=== PATIENT | male | born 1980 | race Caucasian/White ===

== ENCOUNTER 2020-04-25 18:56 | Inpatient (IN) | payer OTHER ==
[~2020-04-25] VITALS: Ht 177.8 cm; Wt 108.0 kg
--- NOTE | 2020-04-25 19:08 | NUR ---
PATIENT TO ROOM VIA WHEELCHAIR.
--- NOTE | 2020-04-25 19:09 | NUR ---
PT. WITH C/O PERIUMBILICAL PAIN THAT STARTED YESTERDAY. ABD. SOFT WITH + BOWEL SOUNDS. PT. STATES HE HAS A PMH OF DIVERTICULITIS.
[2020-04-25 20:05] LABS: HEMOGLOBIN 13.6 g/dl (14.0-18.0); IMMATURE GRANULOCYTES 0.7 % (0.0-5.0); MEAN CELL VOLUME 86.5 fL CALC (80.0-100.0); MEAN CORPUSCULAR HGB 28.7 pG CALC (26.0-32.0); MEAN CORPUSCULAR HGB CONC 33.2 g/dL CAL (32.0-36.0); NEUT# 20.16 thou/uL (1.82-7.42); RED BLOOD COUNT 4.74 mill/uL (4.70-6.10); RED CELL DISTRI WIDTH 13.7 % (11.5-15.5)
[2020-04-25 20:06] LABS: URINE BILIRUBIN - DIPSTICK NEGATIVE (NEGATIVE); URINE BLOOD DIPSTICK NEGATIVE (NEGATIVE); URINE COLOR YELLOW; URINE GLUCOSE - DIPSTICK NEGATIVE (NEGATIVE); URINE KETONE TRACE mg/dL (NEGATIVE); URINE LEUK ESTERASE NEGATIVE (NEGATIVE); URINE NITRITE - DIPSTICK NEGATIVE (Negative); URINE PROTEIN - DIPSTICK TRACE mg/dL (NEG-TRACE); URINE SPECIFIC GRAVITY 1.025
[2020-04-25 20:25] LABS: ALBUMIN 4.6 g/dL (3.2-5.0); ALKALINE PHOSPHATASE 83 u/l (38-126); AMYLASE 66 u/l (30-110); ANION GAP 14 (6-22 (CALC)); BILIRUBIN, TOTAL 1.5 mg/dL (0.0-1.4); BUN 16 mg/dL (9-20); BUN/CREATININE RATIO 15 (12-20 (CALC)); CARBON DIOXIDE 23 mmol/l (22-30); CHLORIDE 104 mmol/l (95-108); CREATININE 1.1 mg/dL (0.7-1.3); GFR > 60 ML/MIN (>=60 (CALC)); GFR FOR AFR.AMER. > 60 ML/MIN (>=60 (CALC)); LIPASE 24 u/l (23-300); POTASSIUM 3.8 mmol/l (3.5-5.1); SGOT/AST 23 u/l (17-59); SODIUM 138 mmol/l (137-146); TOTAL PROTEIN 8.2 g/dL (6.3-8.2)
--- NOTE | 2020-04-25 20:46 | NUR ---
PT. STATES HIS ABD. PAIN IS NOW DECREASED TO A 3 ON A SCALE OF 1-10.
--- NOTE | 2020-04-25 21:46 | NUR ---
PT. STATES HIS ABD. PAIN HAS NOT INCREASED. RESTING QUIETLY ON STRETCHER.
--- NOTE | 2020-04-25 22:00 | NUR ---
MD IN ROOM TO DISCUSS CLINICAL FINDINGS, PT. VERBALIZED UNDERSTANDING.
--- NOTE | 2020-04-25 22:28 | NUR ---
Admission Note Report Given to: ZION AVERY Transported by: Wheelchair X Stretcher Transported with: X Nurse Transporter X Patent IV O2 Automobile Body Repair Supervisor Location: ICU X MS2
--- NOTE | 2020-04-25 22:50 | NUR ---
PT. TAKEN TO [facility] VIA STRETCHER, NO C/O AT THIS TIME.
--- NOTE | 2020-04-25 23:21 | NUR ---
[phone] PT. ARRIVED TO THE FLOOR VIA STRETCHER ACCOMPANIED BY ER NURSE; PT. ORIENTED TO CALL LIGHT, ROOM, AND POC; VERBAIZES UNDERSTANDING. ADMISSION ASSESSMENT COMPLETED. PT. C/O ABDOMINAL PAIN 09/15 AND MEDICATED WITH ORDERED TORADOL; WILL REASSESS. PT. DENIES NAUSEA AT THIS TIME. IV SITE PATENT AND ORDERED IVF STARTED AT THIS TIME. EDCUATED ON DIET. CALL LIGHT IS IN REACH. INSTRUCTED TO CALL FOR ANY NEEDS.
[2020-04-25 23:24] VITALS: BP 116/60
--- NOTE | 2020-04-26 02:26 | NUR ---
PT. RESTING IN BED WITH EYES CLOSED. RESP. EVEN AND UNLABORED.
[2020-04-26 04:00] VITALS: BP 138/55
[2020-04-26 06:11] LABS: HEMATOCRIT 39.2 % (39.0-50.0); HEMOGLOBIN 12.4 g/dl (14.0-18.0); IMMATURE GRANULOCYTES 0.4 % (0.0-5.0); MEAN CELL VOLUME 88.9 fL CALC (80.0-100.0); MEAN CORPUSCULAR HGB 28.1 pG CALC (26.0-32.0); MEAN CORPUSCULAR HGB CONC 31.6 g/dL CAL (32.0-36.0); NEUT# 15.01 thou/uL (1.82-7.42); RED BLOOD COUNT 4.41 mill/uL (4.70-6.10); RED CELL DISTRI WIDTH 13.8 % (11.5-15.5)
--- NOTE | 2020-04-26 06:27 | NUR ---
RESTING IN BED WITH EYES CLOSED; RESP. EVEN AND UNLABORED. CALL LIGHT IS IN REACH.
[2020-04-26 06:32] LABS: ANION GAP 14 (6-22 (CALC)); BUN 17 mg/dL (9-20); BUN/CREATININE RATIO 16 (12-20 (CALC)); CARBON DIOXIDE 22 mmol/l (22-30); CHLORIDE 106 mmol/l (95-108); CREATININE 1.1 mg/dL (0.7-1.3); GFR > 60 ML/MIN (>=60 (CALC)); GFR FOR AFR.AMER. > 60 ML/MIN (>=60 (CALC)); SODIUM 138 mmol/l (137-146)
[2020-04-26 08:00] VITALS: BP 134/55
--- NOTE | 2020-04-26 09:00 | NUR ---
PT SEEN AWAKE, ALERT, ORIENTED X 3, AMBULATORY IN ROOM WITHOUT DIFFICULTY. LUNGS CLEAR, DECREASED SLIGHTLY, RA. ABDOMEN IS SOFT, BM THIS MORNING. PT SEEN BY DR WILDE, WILL KEEP NPO FOR 24-48 HOURS AND LET DIVERTICULI HEAL THEMSELVES WITHOUT SURGERY. PT AWARE ICE CHIPS ONLY. NO COMPLAINT OF PAIN.
--- NOTE | 2020-04-26 13:25 | NUR ---
PT PROVIDED TORADOL FOR RISING PAIN NUMBER OF 6, WILL CALL IF ANOTHER PAIN MED IS NEEDED. PT CONTINUES BEFORE, NO SIGNIFICANT CHANGE IN STATUS.
[2020-04-26 15:05] VITALS: BP 133/61
--- NOTE | 2020-04-26 16:18 | NUR ---
PT REMAINS BEFORE, NO ACUTE DISTRESS OR DISCOMFORT. PT AWARE OF AVAILABLE PAIN MED, WILL MAKE IT KNOWN IF NEEDED.
[2020-04-26 19:50] VITALS: BP 146/73
--- NOTE | 2020-04-26 19:59 | NUR ---
ASSESSMENT COMPLETED. NO DISTRESS NOTED; C/O ABDOMINAL PAIN AND MEDICATED WITH ORDERED PRN TORADOL; WILL REASSESS. PT. NPO. ENCOURAGED TO CALL FOR ANY NEEDS. CALL LIGHT IS IN REACH.
--- NOTE | 2020-04-26 23:35 | NUR ---
PT. C/O ABD PAIN 10/15 AND MEDICATED WITH ORDERED PRN MORPHINE; WILL REASSESS. DENIES FURTHER NEEDS. TEMP REASSESSED AND 98.6. WILL CONTINUE TO MONTIOR.
--- NOTE | 2020-04-27 03:15 | NUR ---
VSS. C/O ABD PAIN 5/10 AND MEDICATED WITH ORDERED PRN TORADOL; WILL REASSESS. DENIES FURTHER NEEDS. CALL LIGHT IS IN REACH.
[2020-04-27 03:19] VITALS: BP 128/57
--- NOTE | 2020-04-27 05:43 | NUR ---
PT. C/O ABD PAIN AND MEDICATED WITH ORDERED PRN MORPHINE; WILL REASSESS.
[2020-04-27 05:44] LABS: HEMATOCRIT 35.1 % (39.0-50.0); HEMOGLOBIN 11.3 g/dl (14.0-18.0); IMMATURE GRANULOCYTES 0.4 % (0.0-5.0); MEAN CELL VOLUME 88.9 fL CALC (80.0-100.0); MEAN CORPUSCULAR HGB 28.6 pG CALC (26.0-32.0); MEAN CORPUSCULAR HGB CONC 32.2 g/dL CAL (32.0-36.0); NEUT# 12.64 thou/uL (1.82-7.42); RED BLOOD COUNT 3.95 mill/uL (4.70-6.10)
[2020-04-27 05:54] LABS: ANION GAP 11 (6-22 (CALC)); BUN 13 mg/dL (9-20); BUN/CREATININE RATIO 13 (12-20 (CALC)); CARBON DIOXIDE 24 mmol/l (22-30); CHLORIDE 109 mmol/l (95-108); GFR > 60 ML/MIN (>=60 (CALC)); GFR FOR AFR.AMER. > 60 ML/MIN (>=60 (CALC)); POTASSIUM 3.9 mmol/l (3.5-5.1); SODIUM 140 mmol/l (137-146)
[2020-04-27 07:58] VITALS: BP 117/71
--- NOTE | 2020-04-27 07:58 | NUR ---
PT LAYING IN BED. A&O X3. NO DISTRESS NOTED. PT REPORTS 4/10 PAIN DESCRIBED ACHING IN ABD. ACTIVE BOWEL SOUNDS HEARD UPON AUSCULTATION. PT CURRENTLY STILL ON ROOM AIR. ASSESSMENT COMPLETED. DISCUSSED POC. CALL LIGHT IN REACH. CONTINUE TO MONITOR.
--- NOTE | 2020-04-27 11:44 | NUR ---
DR WILDE AT BEDSIDE DISCUSSING POC
[2020-04-27 15:20] VITALS: BP 185/91
[2020-04-27 17:45] VITALS: BP 118/72
--- NOTE | 2020-04-27 19:47 | NUR ---
RECIEVED REPORT FROM GENA HARRIS. PT RESTING IN SEMI FOWLERS POSITION UPON ENTERING ROOM. INTRODUCED SELF TO PT AND DICUSSSED POC. PT IS A/O X3. ASSESSMENT AND VITALS COMPLETED. REPSIRATIONS ARE EVEN AND UNLABORED ON ROOM AIR. LUNG SOUNDS ARE CLEAR. PT REPORTS UPPER LOBE TENDERNESS OF ABD. HEART RHYTHM IS MORMAL. BOWEL SOUNDS ARE ACTIVE, LAST REPORTED BM 04/27/20. RADIAL AND PEDAL PULSES ARE STRONG. #20G IN LH RUNNING WITH IVF PER ODER, SITE APPEARS HEALTHY AND PATENT. PT COMPLAINS OF 5/10 PAIN IN ABDOMEN. PT MORPHINE TO BE ADMINISTERED. PT DENIES ANY ADDITIONAL PAINS OR NEEDS AT THIS TIME . ALL SFGAETY PRECVAUTIONS ARE IN PLACE WITH CALL LIGHT IN REACH. AIR/CONTACT PRECAUTIONS IN PLACE. WILL CONTINUE TO MONITOR
[2020-04-27 19:55] VITALS: BP 115/80
--- NOTE | 2020-04-27 21:16 | NUR ---
#20G IN LH INFILTRATED. REMOVED WITH CATHATER STILL INTACT. NEW #20G IN LFA STARTED. SITE FLUSHED, APPEARES HEALTHY AND PATENT. PT TOLERATED WELL. REASSESSMENT OF PAIN RESULTING IN 09/15. RESPIRATIONS REMAINS EVEN AND UNLABORED WITH NO SIGNS OF DISTRESS NOTED. ISOALTION PRECAUTIONS IN PLACE. WILL CONTINUE TO MONITOR
--- NOTE | 2020-04-28 00:39 | NUR ---
PT SLEEPING IN SEMI FOWLERS POSITION. REPSIRATIONS ARE EVEN AND UNLABORED ON ROOM AIR. NO SIGNS OF DISTRESS NOTED. IVF RUNNING PER ORDER, SITE APPEARS HEALTHY AND PATENT. NO SIGNS OF ANY DISTRESS NOTED. ISOLATION PRECAUTION IN PLACE.WILL CONTINUE TO MONITOR
--- NOTE | 2020-04-28 04:02 | NUR ---
PT SLEEPING IN SEMI FOWLERS POSITION. RESPIRATIONS ARE EVEN AND UNLABORED ON ROOM AIR. NO SIGNS OF ANY PAIN OR DISCOMFORTS AT THIS TIME.IVF INFUSING PER ORDER, SITE APPEARS HEALTHY AND PATENT. ALL SAFETY PRECAUTIONS ARE IN PLACE WITH CALL LIGHT IN REACH.AIR/ CONTACT PRECAUTIONS ARE IN PLACE. WILL CONTINUE TO MONITOR
[2020-04-28 04:10] VITALS: BP 124/69
--- NOTE | 2020-04-28 12:00 | NUR ---
PATIENT ASLEEP. EASY TO AWAKE. NO COMPLAINS OR CONCERNS AT THIS TIME
[2020-04-28 15:15] VITALS: BP 159/81
--- NOTE | 2020-04-28 17:28 | NUR ---
PATIENT STATES HE HAS NO PAIN. JUST TIRED. IV ABX GIVEN. NO COMPLIANTS OR CONCERNS
--- NOTE | 2020-04-28 18:03 | NUR ---
PATIENT STATES HE FELT HOT. TEMP TAKEN, NO FEVER. FAN PLACED AT BEDISDE FOR COMFORT MEASURES
[2020-04-28 20:10] VITALS: BP 140/83
--- NOTE | 2020-04-28 22:21 | NUR ---
PATIENT RESTING IN BED POSITIONED ON LEFT SIDE-AWAKE ALERT AND ORIENTEDX3. PATIENT WITH IVF NS PATENT AND INFUSING VIA LEFT FOREARM AT 50CC/HR. SITE IS HEALTHY AT THIS TIME. PATIENT C/O ABD CRAMPING-MEDICATED WITH MORPHINE 4MG IVP FOR PAIN. PATIENT IS IN NEG PRESSURE ROOM AND ON ISOLATION FOR POSITIVE COVID. PATIENT ENCOURAGED TO USE IS INSTRUCTED Q1H WHILE AWAKE AND TO SLEEP PRONE. VERBALIZES UNDERSTANDING OF THE STATED. PATIENT STATES THAT HE IS HAVING LOOSE STOOLS. SAFETY PRECAUTIONS REINFORCED. CALL LIGHT IN REACH. WILL CONT TO MONITOR.
--- NOTE | 2020-04-29 | NUR ---
PATIENT STATES RELIEF FROM MORPHINE THAT HE RECIEVED EARLIER. ZOSYN INFUSING ORDERED VIA LEFT FOREARM IV SITE. ENCOURAGED PATIENT TO LIE PRONE. VOIDING MEGHAN URINE IN URINAL. CALL LIGHT IN REACH. WILL CONT TO MONITOR.
--- NOTE | 2020-04-29 05:00 | NUR ---
PATIENT RESTING IN BED AT THIS TIME WITH NO COMPLAINTS AT THIS TIME. ISOLATION MAINTAINED. IVF PATENT AND INFUSING VIA LEFT FOREARM SITE AT 50CC/HR. SITE REMAINS HEALTHY. O2 SAT REMAINS 97% ON ROOM AIR. CALL LIGHT IN REACH. WILL CONT TO MONITOR.
[2020-04-29 05:10] VITALS: BP 150/87
[2020-04-29 05:59] LABS: HEMOGLOBIN 11.1 g/dl (14.0-18.0); IMMATURE GRANULOCYTES 0.6 % (0.0-5.0); MEAN CELL VOLUME 87.2 fL CALC (80.0-100.0); MEAN CORPUSCULAR HGB 28.5 pG CALC (26.0-32.0); MEAN CORPUSCULAR HGB CONC 32.6 g/dL CAL (32.0-36.0); NEUT# 9.5 thou/uL (1.82-7.42); RED BLOOD COUNT 3.9 mill/uL (4.70-6.10); RED CELL DISTRI WIDTH 13.6 % (11.5-15.5)
[2020-04-29 06:42] LABS: ANION GAP 13 (6-22 (CALC)); BUN 7 mg/dL (9-20); BUN/CREATININE RATIO 7 (12-20 (CALC)); CARBON DIOXIDE 23 mmol/l (22-30); CHLORIDE 108 mmol/l (95-108); CREATININE 0.9 mg/dL (0.7-1.3); GFR > 60 ML/MIN (>=60 (CALC)); GFR FOR AFR.AMER. > 60 ML/MIN (>=60 (CALC)); POTASSIUM 3.6 mmol/l (3.5-5.1); SODIUM 139 mmol/l (137-146)
--- NOTE | 2020-04-29 07:00 | NUR ---
SHIFT CHANGE REPORT, PT RESTING IN BED IN SUPINE POSTITION, C/O MILD ABD PAIN @ 09/15, REFUSED MEAL STATING HE HAS NO APPETITE, ALL OTHER NEEDS ADDRESSED, CALL COMBS IN REACH.
[2020-04-29 09:09] VITALS: BP 146/89
--- NOTE | 2020-04-29 12:00 | NUR ---
RESTING IN BED, DR. WILDE ROUNDED AND DISCUSSED PLAN OF CARE, PT STATED UNDERSTANDING.
[2020-04-29 15:00] VITALS: BP 161/94
--- NOTE | 2020-04-29 15:54 | NUR ---
RESTING IN BED, ALL NEEDS ADDRESS.
[2020-04-29 20:15] VITALS: BP 148/86
--- NOTE | 2020-04-29 20:30 | NUR ---
PATIENT RESTING IN BED AT THIS TIME-AWAKE ALERT AND ORIENTEDX3. PATIENT IN NEG PRESSURE ROOM AND ON ISOLATION FOR COVID. PATIENT STATES NO RESP SYMPTOMS. O2 SATS ON RA-99%. HAVING MULTIPLE LOOSE BM'S THROUGHOUT THE DAY. NO NAUSEA,NO ABD PAIN AT THIS TIME. TAKING PO FLUIDS AND FOOD. ON ORAL ANTIBIOTICS TODAY. IV SITE TO LEFT FOREARM IS RED AND PAINFUL. IV D/C'ED WITH CATH INTACT. PATIENT DECLINES TO HAVE NEW IV SITE STARTED TONIGHT HE IS TO BE D/C'ED HOME IN AM. CALL LIGHT IN REACH. WILL CONT TO MONITOR.
--- NOTE | 2020-04-29 23:45 | NUR ---
PATIENT APPEARS SLEEPING AT THIS TIME WITH EYES CLOSED. RESPS ARE EVEN ANDUNLABORED. CALL LIGHT IN REACH. WILL CONT TO MONITOR.
[2020-04-30 04:40] VITALS: BP 141/83
[2020-04-30 04:56] LABS: HEMATOCRIT 36.2 % (39.0-50.0); HEMOGLOBIN 11.8 g/dl (14.0-18.0); IMMATURE GRANULOCYTES 1.2 % (0.0-5.0); MEAN CELL VOLUME 85.8 fL CALC (80.0-100.0); MEAN CORPUSCULAR HGB CONC 32.6 g/dL CAL (32.0-36.0); NEUT# 11.5 thou/uL (1.82-7.42); RED BLOOD COUNT 4.22 mill/uL (4.70-6.10); RED CELL DISTRI WIDTH 13.2 % (11.5-15.5)
--- NOTE | 2020-04-30 05:51 | NUR ---
PATIENT APPEARS SLEEPING AT THIS TIME-RESP ARE EVEN AND UNLABORED. PATIENT REMAINS ON ISOLATION IN NEG PRESSURE ROOM FOR COVID. CALL LIGHT IN REACH. WILL CONT TO MONITOR.
[2020-04-30 07:56] VITALS: BP 138/84
--- NOTE | 2020-04-30 07:56 | NUR ---
RECIEVED REPORT FROM GENA MAURO. PT WALKING WITH STEADY GAIT BACK FROM BATHROOM. INTRODUCED SELF TO PT AND DISCUSSED POC. PT IS A/O X3. ASSESSMENT AND VITALS COMPLETED AT THIS TIME. BP 138/84, HR 77, O2 97% ON ROOM AIR. RESPIRATIONS ARE EVEN AND UNALBROED WITH NO SIGNS OF DISTRESS NOTED. LUNG SOUNDS ARE CLEAR. HEART RHYTHM IS NORMAL. BOWEL SOUND SARE ACTIVE IN ALL QUADRANTS, LAST REPORETD BM 04/30/2020. RADIAL AND PEDAL PULSES ARE STRONG. PT PRESENTS WITH NO IV SITE. PT INFORMED THAT IF NOT DISCHARGED TOOHLMANY, A NEW IV WOULD HAVE TO HBE OBTAINED. PT VERBALIZED UNDERSTANDING. SKIN IS WARM AND DRY WITH NO BREAK DOWN NOTED.PT DENIES ANY PAIN AT THIS TIME. ALL SAFTEY PRECAUTIONS ARE IN PLACE. AIR/ CONTACT PRECAUYTIONS ARE IN PLACE. WILL CONTINUE TO MONITOR
--- NOTE | 2020-04-30 08:25 | NUR ---
dr weiss at bedside discussing poc with pt
--- NOTE | 2020-04-30 09:38 | NUR ---
#20G IN RAC STARTED, SITE APPEARS HEALTHY AND PATENT. IVF STARTED AT 75 ML/HR. PT TOLERATED WELL.
--- NOTE | 2020-04-30 09:59 | NUR ---
SECOND DOSE OF ORALL CONTAST ADMINISTERED. PT TOLERATING WELL. PT REMAINS NPO AT THIS TIME FOR ABD/PELVIS CT. PT REQUEST FULL LIQUID DIET WHEN ABLE TO EAT AGAIN. ORDER TO BE OBTAINED. PT DENIES ANY NEEDS AT THIS TIME.ALL SAFETY AND ISOALTION PRECAUTIONS ARE IN [PLACE WITH CALL LIGHT IN REACH. WILL CONTINUE TO MONITOR
--- NOTE | 2020-04-30 11:37 | NUR ---
PT TRANSPORTATED TO CT VIA WHEELCHAIR IN STABLE CONDITION ACCOMPAINED BY BRIDGET HUNTER
--- NOTE | 2020-04-30 12:07 | NUR ---
PT ARRIVED BACK TO [facility] ROOM 290 VIA WHEELCHAIR ACCOMPAINED BY RADIOLOGY STAFF. PT SETTLED BACK INTO BED. IVF INFUSING PER ORDER, SITE APPEARS HEALTHY AND PATENT. PT DENIES ANY ADDITIONAL PAINS OR NEEDS. ALL SAFETY PRECAUTIONS ARE IN PLACE WIHT CALL LIGHT IN REACH. WILL CONTINUE TO MONITOR.-
[2020-04-30 15:00] VITALS: BP 147/86
--- NOTE | 2020-04-30 16:02 | NUR ---
PT RESTING IN SEMI FOWLERS POSITION WATCHING TV. RESPIRATIONS ARE EVEN AND UNLABORED ON ROOM AIR. PT DENIES ANY PAINS AT THIS TIME. IVF INFUSING PER ODER, SITE APPEARS HEALTHY AND PATENT. PRODUCTION CONTROL COORDINATING CLERK CONFIRMED THAT DR WILDE DID SPEAK TO PT ABOUT ABDMONIAL WASHOUT AND POSSIBLE COLECTOMY SCHEDULED FOR TOMORROW. PT STATED HE WAS COMFORTABLE SIGNING CONSENT AND HAD NO ADDITIONAL QUESTIONS. CONSENT TO BE OBTAINED. ALL SAFTEY AND ISOLATION PRECAUTIONS ARE IN PLACE WITH CALL LIGHT IN REACH. WILL CONTINUE TO MONITOR
--- NOTE | 2020-04-30 16:38 | NUR ---
CONSENT OBTAINED AT THIS TIME, PT DENIES ANY QUESTIONS.
[2020-04-30 19:00] VITALS: BP 156/92
[2020-05-01] VITALS (9 sets, daily range): BP systolic 134–153; BP diastolic 71–84
--- NOTE | 2020-05-01 01:18 | NUR ---
PPHYSICAL ASSESMENT COMPLETE. PT CURRENTLY DENIES PAIN OR DISCOMFORT. SCHEDULED MEDICATIONS AND PRN MEDICATION ADMINISTERED, SEE E-MAR. PT STATING 98 % ON RA. PT DENIES ANY NEEDS AT THIS TIME. PLAN OF CARE REVIEWED, PT DENIES QUESTIONS, VERBALIZES UNDERSTANDING. ITEMS WITHIN REACH, BED LOCKED IN LOW POSITION W/ BEDRAILS UP X2. CALL COMBS WITHIN REACH, AGREES TO CALL PRN.
--- NOTE | 2020-05-01 04:06 | NUR ---
PT LAYING IN BED WITH EYES CLOSED, APPEARS TO BE SLEEPING, APPEARS COMFORTABLE AND IN NO DISTRESS. RESPIRATIONS REGULAR AND UNLABORED. ITEMS REMAIN WITHIN REACH, CALL COMBS REMAINS WITHIN REACH. BED REMAINS LOCKED AND IN LOW POSITION WITH BEDRAILS UP X2. WILL CONTINUE TO MONITOR.
[2020-05-01 05:21] LABS: HEMATOCRIT 36.9 % (39.0-50.0); HEMOGLOBIN 12.1 g/dl (14.0-18.0); IMMATURE GRANULOCYTES 2.1 % (0.0-5.0); MEAN CELL VOLUME 85.8 fL CALC (80.0-100.0); MEAN CORPUSCULAR HGB 28.1 pG CALC (26.0-32.0); MEAN CORPUSCULAR HGB CONC 32.8 g/dL CAL (32.0-36.0); NEUT# 9.05 thou/uL (1.82-7.42); RED BLOOD COUNT 4.3 mill/uL (4.70-6.10); RED CELL DISTRI WIDTH 13.3 % (11.5-15.5)
--- NOTE | 2020-05-01 09:00 | NUR ---
PT IS AT REST IN THE BED, ALERT AND ORIENTED X 3. LUNGS CLEAR, PT AMBULATORY IN ROOM WITHOUT DIFFICULTY. PT STATES NO ABDOMINAL PAIN BUT DOES HAVE A HEADACHE. NO DISTRESS, AWAITS DR WILDE.
--- NOTE | 2020-05-01 13:00 | NUR ---
PT AT SURGERY AT THIS TIME.
--- NOTE | 2020-05-01 20:06 | NUR ---
PHYSICAL ASSESMENT COMPLETE. PT CURRENTLY DENIES PAIN OR DISCOMFORT. SCHEDULED MEDICATIONS AND PRN MEDICATION ADMINISTERED, SEE E-MAR. PT DENIES ANY NEEDS AT THIS TIME. PLAN OF CARE REVIEWED, PT DENIES QUESTIONS, VERBALIZES UNDERSTANDING. ITEMS WITHIN REACH, BED LOCKED IN LOW POSITION W/ BEDRAILS UP X2. CALL COMBS WITHIN REACH, AGREES TO CALL PRN.
[2020-05-02 04:00] VITALS: BP 151/80
--- NOTE | 2020-05-02 04:07 | NUR ---
PT RESTING IN BED, NO SIGNS OF DISTRESS NOTED, RESP EVEN AND UNLABORED. PT VOICES NO NEEDS OR COMPLAINTS AT THIS TIME. CALL LIGHT IN REACH,CONTINUE TO MONITOR.
[2020-05-02 07:25] VITALS: BP 130/85
--- NOTE | 2020-05-02 07:25 | NUR ---
PATIENT IN BED AT THIS TIME. DENIES ANY NEEDS STATED PAIN IS A 3 ON SCALE OF 0-10 PATIENT STATES DOESN'T NEED ANYTIHNG FOR PAIN. BERTHA DRAIN HAS MIN. AMOUNT OF LIGHT BLOOD TINGED DRAINAGE AT THIS TIME DERMABOND TO ABD. UMBILICAL AREA IN TACT. CALL LIGHT IS WITNIN REACH SIDERAILS UP X 2.
--- NOTE | 2020-05-02 11:38 | NUR ---
PATIENT SITTING UP ALONG BEDSIDE. PATIENT BERTHA DRAIN STILL IN PLACE SCANT AMT. OF LIGHT BLOOD TINGED DRAINAGE AT THIS TIME. PATIENT DENIES ANY NEED FOR PAIN MEDICATION AT THIS TIME. DERMABOND INTACT ON UMBILICAL SITE. CALL LIGHT WITHIN REACH SIDERAILS UP X 2.
--- NOTE | 2020-05-02 11:54 | NUR ---
PATIENT UP TO BATHROOM TO TAKE SHOWER AT THIS TIME. PATIENT DENIES ANY PAIN AND STATES "IT FEELS BETTER GETTING UP". BERTHA DRAIN INTACT AND DRAINING SMALL AMOUNT OF LIGHT BLOOD TINGED FLUID. DERMABOND TO UMBILICUS REMAINS INTACT AT THIS TIME.
[2020-05-02 15:10] VITALS: BP 145/88
--- NOTE | 2020-05-02 16:13 | NUR ---
PATIENT SITTING UP ON BEDSIDE AT THIS TIME. PATIENT STATES PAIN LEVEL IS A 2 OUT OF A PAIN SCALE OF 0-10. PATIENT DENIES ANY NEED FOR PAIN MEDICATION AT THIS TIME. PATIENT SIDERAILS UP X 2 AND CALL LIGHT WITHIN REACH.
--- NOTE | 2020-05-02 16:59 | NUR ---
PATIENT IN BED AT THIS TIME. ABDOMINAL SURGERY SITE VIEWED. UMBILICAL DERMABOND INTACT AND SURGICAL DRESSING INTACT WITH VISABLE SECOND DERMABOND SITE INTACT WELL. BERTHA DRAIN INTACT AND DRAINING SMALL AMOUNT SEROANGINEOUS DRAINAGE AT THIS TIME.
[2020-05-02 19:00] VITALS: BP 153/94
--- NOTE | 2020-05-02 20:15 | NUR ---
PT AWAKE RESTING IN BED WATCHING T.V. PT IS ALERT AND ORIENTED X4. RESP EVEN AND UNLABORED. O2 SAT 96% ON R/A. LUNGS CLEAR IN MID TO UPPER LOBES WITH DIMINISHED BREATH SOUNDS IN BILAT BASES. PT DENIES ANY DIFFICULTY BREATHING OR SHORTNESS OF BREATH. ABD SOFT AND NONDISTENDED WITH BOWEL SOUNDS PRESENT. UMBILICAL INC IS CLEAN AND DRY WITH NO DRAINAGE PRESENT. LEFT ABD BERTHA DRANING SMALL AMT OF SEROSAGUINOUS DRAINAGE AND 20CC EMPTIED. BERTHA RECONSTITUTED. NO LOWER EXT EDEMA NOTED. PEDAL PULSES PALPATED BILAT. IV SITE PATENT IN RT A.C WITH D5 1/2NSS AT 75CC/HR. PT OFFERS NO COMPLAINTS. VOIDING CLEAR YELLOW URINE. WILL CONTINUE TO CLOSELY MONITOR. FREQUENT ROUNDS MADE. CALL COMBS WITHIN REACH.
[2020-05-03] VITALS: BP 132/76
--- NOTE | 2020-05-03 00:10 | NUR ---
RESTING IN BED WATCHING TV. RESP EVEN AND UNLABORED. NO DISTRESS NOTED. IV SITE IS PATENT IN RT A.C WITH NO REDNESS OR SWELLING AT SITE. BERTHA IS PATENT WITH SCANT AMT OF DRAINAGE AT THIS TIME. PT OFFERS NO COMPLAINTS. WILL CONTINUE TO CLOSELY MONITOR. FREQUENT ROUNDS MADE. VOIDING CLEAR YELLOW URINE. CALL COMBS WITHIN REACH.
[2020-05-03 04:00] VITALS: BP 134/86
--- NOTE | 2020-05-03 04:30 | NUR ---
PT RESTING IN BED. RESP EVEN AND UNLABORED, R/A. NO DISTRESS NOTED. BERTHA IS PATENT AND RECONSTITUED. IV SITE PATENT WITH NO REDNESS OR SWELLING AT SITE. PT OFFERS NO COMPLAINTS. VSS. WILL CONTINUE TO CLOSELY MONITOR. FREQUENT ROUNDS MADE. CALL COMBS WITHIN REACH.
--- NOTE | 2020-05-03 05:55 | NUR ---
PT AWAKE RESTING IN BED. PT DENIES ANY DISCOMFORT. RESP EVEN AND UNLABORED. IV SITE PATENT. BERTHA PATENT EMPTIED 10CC OF SEROSAGUINOUS AND RECONSTITUTED. NO DISTRESS NOTED. FREQUENT ROUNDS MADE. CALL COMBS WITHIN REACH.
[2020-05-03 06:03] LABS: ALKALINE PHOSPHATASE 75 u/l (38-126); ANION GAP 14 (6-22 (CALC)); BUN 4 mg/dL (9-20); BUN/CREATININE RATIO 4 (12-20 (CALC)); CARBON DIOXIDE 26 mmol/l (22-30); CHLORIDE 106 mmol/l (95-108); CREATININE 0.9 mg/dL (0.7-1.3); GFR > 60 ML/MIN (>=60 (CALC)); GFR FOR AFR.AMER. > 60 ML/MIN (>=60 (CALC)); HEMATOCRIT 36.1 % (39.0-50.0); HEMOGLOBIN 11.8 g/dl (14.0-18.0); IMMATURE GRANULOCYTES 3.5 % (0.0-5.0); MEAN CELL VOLUME 86.8 fL CALC (80.0-100.0); MEAN CORPUSCULAR HGB 28.4 pG CALC (26.0-32.0); MEAN CORPUSCULAR HGB CONC 32.7 g/dL CAL (32.0-36.0); NEUT# 7.44 thou/uL (1.82-7.42); POTASSIUM 3.8 mmol/l (3.5-5.1); RED BLOOD COUNT 4.16 mill/uL (4.70-6.10); RED CELL DISTRI WIDTH 13.8 % (11.5-15.5); SGOT/AST 24 u/l (17-59); SODIUM 142 mmol/l (137-146)
[2020-05-03 06:28] LABS: ALBUMIN 3.2 g/dL (3.2-5.0); BILIRUBIN, TOTAL 0.6 mg/dL (0.0-1.4); TOTAL PROTEIN 6.2 g/dL (6.3-8.2)
--- NOTE | 2020-05-03 07:10 | NUR ---
REPORT RECEIVED FROM GENA SALTER.
[2020-05-03 07:54] VITALS: BP 150/93
--- NOTE | 2020-05-03 07:55 | NUR ---
PT RESTING IN SEMI FOWLERS POSITION,A&O X3;VS OBTAINED AND ASSESSMENT COMPLETED;PT DENIES ANY CURRENT PAIN OR DISCOMFORTS,PAIN SCALE AND REPORTING EDUCATED;PT POD #2 LAP DRAINAGE OF INTRA ABDOMINAL ABSCESS;RESPIRATIONS EVEN AND UNLABORED ON RA,CLEAR/DIMINISHED LUNG SOUNDS;ABDOMEN DISTENDED/SOFT ON PALPATION AND ACTIVE IN ALL 4 QUADRANTS;DRESSING TO ABDOMEN CDI AND BERTHA DRAIN NOTED TO LLQ DRAINING SCANT AMOUNT OF BLOODY DRAINAGGE;SKIN OTHERWISE INTACT;STRONG PEDAL PULSES;#20G TO RAC INFUSING NS @ 75ML/HR,SITE APPEARS HEALTHY;CLEAR LIQUID DIET REINFORCED;PT REMAINS IN AIR/CONTACT ISOLATION DUE TO COVID19 DX;PT DENIES ANY ADDITIONAL NEEDS AND IS ENCOURAGED TO CALL FOR ASSISTANCE IF NEEDED;CALL LIGHT IN REACH;WILL CONTINUE TO MONITOR
--- NOTE | 2020-05-03 11:15 | NUR ---
AT BEDSIDE DISCUSSING POC.
--- NOTE | 2020-05-03 11:50 | NUR ---
PT RESTING IN SEMI FOWLERS POSITION;RESPIRATIONS EVEN AND UNLABORED ON RA;PT REPORTS MINIMAL PAIN TO ABDOMEN RATING 1/10 ON THE PAIN SCALE,PT MEDICATED WITH LAST DOSE OF SCHEDULED TORADOL AT THIS TIME;IV FLUIDS DECREASED TO 20ML/HR PER ORDER AND ABX HUNG AT THIS TIME;DRESSING TO ABDOMEN REMAINS CDI AND BERTHA DRAIN PATENT;ASSESSMENT REMAINS UNCHANGED;PT ENCOURAGED TO CALL FOR ASSISTANCE IF NEEDED;FALL PRECAUTIONS IN PLACE WITH BED IN THE LOWEST POSITION AND CALL LIGHT IN REACH;WILL CONTINUE TO MONITOR
[2020-05-03 15:00] VITALS: BP 124/77
--- NOTE | 2020-05-03 15:40 | NUR ---
PT RESTING IN SEMI FOWLERS POSITION;RESPIRATIONS EVEN AND UNLABORED ON RA;PT DENIES ANY CURRENT PAIN OR DISCOMFORTS;IV FLUIDS INFUSING WITH EASE PER ORDER;PT REMAINS IN AIR/CONTACT PRECAUTIONS;PT ENCOURAGED TO CALL FOR ASSISTANCE IF NEEDED;CALL LIGHT IN REACH;WILL CONTINUE TO MONITOR
--- NOTE | 2020-05-03 20:00 | NUR ---
RECEIVED REPORT FROM NURSE DELVIN, PATIENT CURRENTLY SITTING IN BED, WATCHING TV, ALERT ORIENTED, WITH ONGOING D51/2NS @ 20CC/HR INFUSING WELL ON RAC, ABD DRESSING CDI, BERTHA DRAIN DRAINING SEROSANGUINEOUS DRAINAGE, ACTIVE BOEL SOUNDS REMAINS ON ISOLATION AIR/CONTACT, BREATHING EVEN UNLABORD, DENEIS COUGH, CALL LIGHT AT REACH.
[2020-05-03 20:15] VITALS: BP 162/87
--- NOTE | 2020-05-04 | NUR ---
PATIENT APPEARS TO BE SLEEPING WITH EYS CLOSED, BREATHING EVEN UNLABORED, DUE ABX GIVEN CALL [facility] AT REACH.
[2020-05-04 04:30] VITALS: BP 131/75
--- NOTE | 2020-05-04 05:00 | NUR ---
PATIENT RESTING IN BED WITH EYES CLOSED, NOT IN DISTRESS NO DISCOMFORTS NOTED, BERTHA DRAIN 5CC OUTPUT SANGUINEOUS DRAINAGE, CALL LIGHT AT REACH.
--- NOTE | 2020-05-04 07:00 | NUR ---
REPORT RECEIVED FROM GENA KWONG.
[2020-05-04 07:57] VITALS: BP 145/80
--- NOTE | 2020-05-04 07:57 | NUR ---
PT RESTING IN SEMI FOWLERS POSITION,A&O X3;VS OBTAINED AND ASSESSMENT COMPLETED;PT DENIES ANY CURRENT PAIN OR DISCOMFORTS,PAIN SCALE AND REPORTING EDUCATED;PT POD #3 INTRA ABDOMINAL ABCESS DRAINAGE AND BERTHA PLACEMENT;RESPIRATIONS EVEN AND UNLABORED ON RA,CLEAR LUNG SOUNDS;ABDOMEN DISTENDED/SOFT ON PALPATION AND ACTIVE IN ALL 4 QUADRANTS, PT REPORTS FREQUENT LOOSE BOWEL MOVEMENTS;BERTHA DRAIN NOTED TO LLQ DRAINING SCANT AMOUNT OF BLOODY DRAINAGE;STRONG PEDAL PULSES;#20G TO RAC INFUSING D5 1/2 NS @ 20ML/HR,SITE APPEARS HEALTHY;PT REMAINS IN AIR/CONTACT PRECAUTIONS DUE TO COVID19 DX;PT DENIES ANY ADDITIONAL NEEDS AND IS ENCOURAGED TO CALL FOR ASSISTANCE IF NEEDED;FALL PRECAUTIONS IN PLACE WITH BED IN THE LOWEST POSITION AND CALL LIGHT IN REACH;WILL CONTINUE TO MONITOR
--- NOTE | 2020-05-04 09:45 | NUR ---
IV SITE FOUND TO BE LEAKING,SITE REMOVED WITH CATHETER INTACT; PER OK TO LEAVE IV SITE OUT AND D/C ZOSYN IVP. ORDER FOR AUGMENTIN 875 MG PO BID OBTAINED;WILL CONTINUE TO MONITOR
[2020-05-04] MEDS ORDERED: AMOX/K CLAV875 M1 PO (11:35)
--- NOTE | 2020-05-04 12:40 | NUR ---
PT RESTING IN SEMI FOWLERS POSITION;RESPIRATIONS REMAIN EVEN AND UNLABORED ON RA;PT DENIES ANY CURRENT PAIN OR DISCOMFORTS;ALL DISCHARGE INSTRUCTIONS PROVIDED AT THIS TIME;PT INSTRUCTED THAT OFFICE WILL CONTACT HIM ON Thursday06/06/20 FOR F/U APPT, PT MAY SHOWER AND TAKE PERCOCET 5/325MG PO NEEDED FOR PAIN;RX FOR PERCOCET AND AUGMENTIN PROVIDED AT THIS TIME;BERTHA DRAIN REMOVED AND PT TOLERATED WELL;INCISIONAL SITE SECURED WITH 4X4 AND TEGADERM;PT DENIES ANY ADDITIONAL QUESTIONS OR NEEDS;WHEELCHAIR TO BE PROVIDED FOR D/C HOME;[facility] TO TRANSPORT PT HOME;WILL CONTINUE TO MONITOR
--- NOTE | 2020-05-04 12:56 | NUR ---
Discharge instructions given. Patient verbalizes understanding of same. Discharged in stable condition via Wheelchair to Home with *Other. All belongings sent with pt. PT TRANSPORTED VIA WHEELCHAIR IN STABLE CONDITION TO LOBBY FOR D/C HOME;[facility] TO TRANSPORT PT HOME;ALL BELONGINGS LEFT WITH PT AT THIS TIME INCLUDING RX FOR PERCOCET AND AUGMENTIN.
== END 2020-05-04 12:55 | disposition home or self-care (01) | DRG 358 ==
LOC: ED 18:56 → ED-I 21:40 → ED 21:46 → MS2 21:47
PROVIDERS: Family Medicine; Nurse Practitioner; ADMIT Surgery; ATTEND Surgery
PROC: 0W9J40Z Drainage of Pelvic Cavity with Drainage Device, Percutaneous Endoscopic Approach (ICD-10-PCS; principal; 2020-05-01)
DX: K57.20 Diverticulitis of large intestine with perforation and abscess without bleeding (principal); B96.20 Unspecified Escherichia coli [E. coli] as the cause of diseases classified elsewhere; M19.90 Unspecified osteoarthritis, unspecified site; M54.5 Low back pain
CPT/HCPCS: J0131; J2710; Q9967

== ENCOUNTER 2020-12-02 16:13 | Emergency (ER) | payer OTHER ==
[~2020-12-02] VITALS: Ht 177.8 cm; Wt 106.8 kg
[~2020-12-02 16:13] MED LIST: AMOX/K CLAV875 M1 PO
[2020-12-02] MEDS ORDERED: BACTROBAN TOP ×2 (17:47→18:19)
[2020-12-02 17:54] VITALS: BP 122/73
== END 2020-12-02 17:54 | disposition home or self-care (01) | DRG 605 ==
LOC: ED 16:13
DX: S80.812A Abrasion, left lower leg, initial encounter (principal); W13.8XXA Fall from, out of or through other building or structure, initial encounter; Y93.89 Activity, other specified; Y92.009 Unspecified place in unspecified non-institutional (private) residence as the place of occurrence of the external cause